=== PATIENT | male | born 1980 | race Caucasian/White ===

== ENCOUNTER 2022-07-06 01:20 | Emergency (ER) | payer OTHER ==
[~2022-07-06] VITALS: Ht 175.3 cm; Wt 87.1 kg
[2022-07-06] MEDS ORDERED: diphenhydrAMINE 50MG/ML VIAL IV STA (01:41)
[2022-07-06] MEDS ORDERED: EPINEPHrine INJ 1 MG/ML 1ML AMP IM STA (01:41)
[2022-07-06] MEDS ORDERED: FAMOTIDINE 20MG/2ML VIAL IVP ONE (01:45)
[2022-07-06] MEDS ORDERED: NS 1,000 ML IV ONE (01:55)
[2022-07-06] MEDS ORDERED: FAMO20TA PO (04:04)
[2022-07-06] MEDS ORDERED: PRED20TA PO (04:04)
[2022-07-06] MEDS ORDERED: EPIP0.3I2 IM (04:04)
[2022-07-06] MEDS ORDERED: GNPTAB36 PO (04:04)
[2022-07-06 05:00] VITALS: BP 135/77
== END 2022-07-06 05:12 | disposition home or self-care (01) ==
LOC: M ED 01:20
DX: R21 Rash and other nonspecific skin eruption (principal); F17.200 Nicotine dependence, unspecified, uncomplicated
CPT/HCPCS: 96361; 96372; 96374; 96375; 99284; J1100

== ENCOUNTER → 2023-09-16 | Outpatient (REF) ==
[~2023-09-16] MED LIST: EPIP0.3I2 IM; FAMO20TA PO; GNPTAB36 PO; PRED20TA PO
== END ==
LOC: M PLALAB 12:55 → M PLAIMG 12:55
PROVIDERS: ATTEND Internal Medicine
DX: R52 Pain, unspecified (principal); M19.072 Primary osteoarthritis, left ankle and foot